=== PATIENT | female | born 1970 | race Caucasian/White ===

== ENCOUNTER 2018-08-27 08:54 | Emergency (ER) | payer BC ==
[2018-08-27] MEDS: ACETAMINOPH W/CODEINE #3 TAB UD PO (09:24)
== END 2018-08-27 10:16 | disposition home or self-care (01) ==
LOC: M ED 08:54
DX: M25.562 Pain in left knee (principal); I10 Essential (primary) hypertension; F17.210 Nicotine dependence, cigarettes, uncomplicated; Z88.0 Allergy status to penicillin
CPT/HCPCS: 73564